=== PATIENT | female | born 1990 | race Caucasian/White ===

== ENCOUNTER → 2019-12-26 13:48 | Outpatient (BNVA) | payer SELFPAY | PROVIDERS: Family Provider Nurse Practitioner; Visit Provider Nurse Practitioner | DX: S96.912A Strain of unspecified muscle and tendon at ankle and foot level, left foot, initial encounter (principal); W19.XXXA Unspecified fall, initial encounter; Z68.41 Body mass index [BMI] 40.0-44.9, adult; F17.211 Nicotine dependence, cigarettes, in remission | CPT/HCPCS: 73630 ==

== ENCOUNTER → 2020-11-17 10:25 | Outpatient (BNVA) | payer OTHER, SELFPAY | PROVIDERS: Family Provider Nurse Practitioner; Visit Provider Nurse Practitioner Family | DX: Z20.822 Contact with and (suspected) exposure to COVID-19 (principal) | CPT/HCPCS: 87635 ==

== ENCOUNTER 2021-04-19 14:38 | Emergency (ER) | payer MEDICAID, SELFPAY ==
--- NOTE | 2021-04-19 14:45 | XR_ITS ---
WS: [id number] Exam: XR ankle LT min 3V* [id number] Date/Time of Exam: 04/19/2021 2:45 PM Reason For Exam: injury/pain There is a small bone fragments seen along the lateral margin of the calcaneus with soft tissue swell ing. This is suspicious for an acute fracture. No fractures of the ankle are seen. The ankle mortise is preserved. Prominent heel spur. XR/XR ankle LT min 3V* [id number] IMPRESSION: 1. Small bone chip seen along the lateral margin of the calcaneus with associat ed soft tissue swelling suspicious for small fracture. 2. The ankle appears normal.
[2021-04-19 15:07] VITALS: BP 116/60; PULSE 86; RESP 16; TEMP 36.7; O2SAT 99
--- NOTE | 2021-04-19 17:34 | W.ED.EXTPRO ---
HPI - Extremity Problem General: Chief complaint: Extremity Injury, Lower Stated complaint: L ANKLE INJURY Time Seen by Provider: 04/19/21 17:34 History of Present Illness: HPI Narrative: 30-year-old female comes in today for evaluation of injury of the left ankle. Patient was stepping off the last step and fell twisting her left ankle. Patient has pain and discomfort. Patient reports hearing a pop in the ankle. Patient appears well. Patient appears no acute distress. Patient denies any chronic medical problems. Review of Systems General: Reports: 10 or more systems reviewed and unremarkable except in HPI and below Musc: Reports: other (Left ankle injury.) [facility] ED PFSH: Social History Smoking and tobacco status: former smoker Physical Exam Const: COMMON NORMALS: no acute distress and patient oriented x3 GENERAL APPEARANCE: cooperative HENMT: COMMON NORMALS: normocephalic HEAD & SCALP: normal to inspection and normocephalic Eye: GENERAL EYE: appearance normal, both eyes and all related structures Neck/C-Spine: COMMON NORMALS: full ROM Chest: COMMONS NORMALS: normal inspection of the chest Resp: COMMON NORMALS: normal respiratory effort EFFORT & INSPECTION: Yes able to speak in complete sentences Cardio: COMMON NORMALS: regular rate and regular rhythm RATE: regular rate RHYTHM: regular rhythm GI: COMMON NORMALS: non-tender Back/Pelvis: COMMON NORMALS: thoracic and lumbar spine normal to inspection Extremity: NARRATIVE EXTREMITY EXAM: Lateral tenderness of the left ankle with swelling noted. Neuro: COMMON NORMALS: patient oriented x3 and moves all extremities Psych: COMMON NORMALS: mental status grossly normal and cooperative Skin: COMMON NORMALS: no rashes or lesions noted GENERAL SKIN EXAM: no rashes or lesions noted Course Vital Signs: Vital signs: Vital Signs Temperature 98.1 F 04/19/21 15:07 Pulse Rate 86 04/19/21 15:07 Respiratory Rate 16 04/19/21 15:07 Blood Pressure 116/60 04/19/21 15:07 Pulse Oximetry 99 04/19/21 15:07 MDM - Extremity (Nontraumatic) MDM Narrative: Medical decision making narrative: Patient comes in for injury to the left ankle. On exam patient has tenderness and swelling to the lateral left ankle. Differential diagnosis includes sprain, fracture, contusion. X-ray notes a superficial fracture along the lateral calcaneus probably suggestive of a avulsion fracture of the ligament. Reviewed exam with patient with recommendations for treatment and follow-up with orthopedic/podiatry. Case management was requested to assist with follow-up appointment. Patient was placed in a stirrup splint and crutches for ambulation. Patient reported understanding of care plan and need for follow-up or return to the ER. Discharge Plan Discharge Patient Disposition: Home Clinical Impression: Ankle fracture Qualifiers: Encounter type: initial encounter Fracture type: closed Laterality: left Qualified Code(s): S82.892A - Other fracture of left lower leg, initial encounter for closed fracture Condition: Stable Discharge Orders: Discharge ED (Routine); Ordered 04/19/21 Ordered By: Lokesh Garza Discharge Diet: Usual diet Discharge Activity: Increase activity as tolerated Patient Instructions: Ankle Fracture (ED), Opioid Safety Activity Restrictions/Additional Instructions: Activity as tolerated. Use crutches for ambulation. Maintain splint to keep it clean and dry. Follow-up with orthopedist or pulverizer tender for further evaluation. Case management will contact you to assist with follow-up appointment. Use acetaminophen and ibuprofen for pain. Use ice packs for further pain relief. Return to emergency department for new concerns. Coding Level of Care Code ED Lithographic Printing Machinist for Alyssa Stearns
[2021-04-19 17:51] VITALS: BP 147/105; PULSE 82; RESP 18; O2SAT 98
--- NOTE | 2021-04-19 17:57 | PC.NURSE ---
Reviewed with STREETCAR REPAIRER HELPER for stirrup splint, placed by rubi Meza with crutch training.
--- NOTE | 2021-04-20 08:39 | DCPLANNER ---
microbiology manager had message to schedule a follow up appointment for patient with ortho. microbiology manager called the ortho clinic, spoke with Willow, gave clinic patients information. microbiology manager was told that patients information would be printed and reviewed. Clinic will call patient with appointment information.
--- NOTE | 2021-04-22 07:04 | DCPLANNER ---
Patient has a follow up appointment scheduled for Tuesday, April 27, 2021 at 9:[address] Peters at [facility]. Clinic will call patient with appointment information.
--- NOTE | 2021-05-07 11:19 | DCPLANNER ---
Patient had a follow up appointment scheduled for 04.27.21 with ortho - patient did attend appointment.
== END 2021-04-19 19:17 | disposition home or self-care (01) ==
PROVIDERS: Emergency Provider Nurse Practitioner Family
DX: S92.002A Unspecified fracture of left calcaneus, initial encounter for closed fracture (principal); X50.1XXA Overexertion from prolonged static or awkward postures, initial encounter; Z87.891 Personal history of nicotine dependence
CPT/HCPCS: 29515; 73610; 99283

== ENCOUNTER 2021-04-27 11:26 | Outpatient (CLI) | payer BC, SELFPAY | END 2021-04-27 11:27 | disposition home or self-care (01) | LOC: SPT 11:27 | PROVIDERS: Visit Provider Orthopaedic Surgery | DX: M25.572 Pain in left ankle and joints of left foot (principal) | CPT/HCPCS: 97760; L4361 ==

== ENCOUNTER → 2022-04-11 17:09 | Outpatient (BNVA) | payer BC, SELFPAY | PROVIDERS: PCP Registered Nurse; Visit Provider Registered Nurse Neonatal Intensive Care | DX: J02.9 Acute pharyngitis, unspecified (principal); H66.001 Acute suppurative otitis media without spontaneous rupture of ear drum, right ear | CPT/HCPCS: 87071; 87880 ==

== ENCOUNTER 2023-02-01 16:55 | Observation (INO) | payer BC, MEDICAID, SELFPAY ==
[2023-02-01 16:57] VITALS: BP 142/72; PULSE 83; RESP 17; TEMP 36.8; O2SAT 98; BMI 48.4
[2023-02-01 17:17] LABS: Basophils % 0.4 %; Eosinophils # 0.1 10^3/uL (0.0-0.8); Eosinophils % 1.2 %; Hematocrit 42.3 % (36-47); Lymphocytes # 2.2 10^3/uL (0.8-4.8); Mean Corpuscular HGB Conc 32.2 g/dL (30-55); Mean Corpuscular Hemoglobin 27.8 pg (27-33); Mean Corpuscular Volume 86.3 fl (85-98); Mean Platelet Volume 10.5 fL (7.4-10.4); Monocytes # 0.5 10^3/uL (0.2-0.9); Monocytes % 4.4 %; Neutrophils # 8.11 10^3/uL (1.8-7.7); Neutrophils % 73.7 %; Nucleated Red Blood Cells % 0 %; Platelet Count 303 10^3/cmm (157-399); Red Cell Distribution Width 13.5 % (12.1-15.1); White Blood Count 10.99 10^3/uL (3.29-11.43)
--- NOTE | 2023-02-01 17:28 | W.ED.ABDPA2 ---
HPI - Abdominal Pain General: Chief Complaint: Abdominal Pain Stated Complaint: low abd pain Time Seen by Provider: 02/01/23 16:59 History of Present Illness: 32 yo f with 8 hrs of abdominal pain, progressively gotten worse. Location primarily periumbulical. Nausea with one episode of vomiting. Five normal stools today; eg increased in frequency but otherwise normal. Denies surgies to abd other than c section. No f/c, cough, cp, sob, dysuria, hematuria. Some low back pain but she cannot reproduce it. Denies alcohol use. Associated Symptoms: Denies chills, diarrhea, dysuria, fever(s) and syncope Review of Systems General: Reports: 10 or more systems reviewed and unremarkable except in HPI and below Const: Denies: fever(s), chills or body aches Eyes: Denies: change in vision ENMT: Denies: throat pain Card: Denies: chest pain, edema or syncope Resp: Denies: dyspnea or productive cough GI: Denies: diarrhea : Denies: flank pain, dysuria or urinary frequency Musc: Denies: neck pain, extremity pain or extremity swelling Skin/Breast: Denies: rash or erythema Neuro: Denies: headache(s), numbness in extremities, weakness in extremities, lack of coordination or difficulty walking PFSH ED PFSH: Social History Smoking and tobacco status: former smoker Physical Exam Const: COMMON NORMALS: no limitations, alert and well nourished EXAM LIMITATIONS: no altered mental status HENMT: COMMON NORMALS: normocephalic, atraumatic and external ears normal HEAD & SCALP: normocephalic and atraumatic EXTERNAL EAR: Yes external ears normal MOUTH: no muffled voice Eye: COMMON NORMALS: EOMs intact bilaterally, conjunctivae normal and no scleral icterus CONJUNCTIVA: Yes conjunctivae normal Neck/C-Spine: COMMON NORMALS: no JVD GENERAL: Yes normal visual inspection and Yes trachea midline Resp: COMMON NORMALS: normal respiratory effort, No use of accessory muscles and clear to auscultation bilaterally AUSCULTATION: clear to auscultation bilaterally Cardio: COMMON NORMALS: no JVD, regular rate and regular rhythm RATE: regular rate RHYTHM: regular rhythm GI: COMMON NORMALS: Soft to palpation PALPATION: Yes Soft to palpation, Yes Tenderness to palpation present (GI) (periumbilical), Yes Guarding due to palpation present (GI), No Rigid due to palpation and Yes Other GI palpation findings present (heel strike causes her to localize periumbilical) Extremity: COMMON NORMALS: normal to inspection Neuro: COMMON NORMALS: moves all extremities, no focal motor deficits and no sensory deficits noted SENSORIUM/ORIENTATION: Yes alert SPEECH: speech normal Psych: COMMON NORMALS: mental status grossly normal, Normal thought process present, cooperative, normal affect and speech normal SPEECH: Yes normal speech THOUGHT PROCESS: Normal thought process present Skin: COMMON NORMALS: no rashes or lesions noted, turgor normal and no jaundice GENERAL SKIN EXAM: no rashes or lesions noted and turgor normal Course Vital Signs: Vital signs: Vital Signs Temperature 98.3 F 02/01/23 16:57 Pulse Rate 100 02/01/23 18:32 Respiratory Rate 22 H 02/01/23 18:23 Blood Pressure 155/81 02/01/23 18:32 Pulse Oximetry 98 02/01/23 18:32 Oxygen Delivery Me thod Room Air 02/01/23 18:32 MDM - Abdominal Pain Medical Decision Making ddx: Diverticulitis, colitis, partial obstruction, appendicitis, gastroenteritis, internal hernia, UTI, mesenteric adenitis, panniculitis, multiple others. Discussed differential diagnosis and need for further work-up including labs, urine, UPT, CT scan of the abdomen and pelvis. Will control pain during work-up. White blood cell count elevated to 11,000 No other significant lab derangements UA without any convincing evidence of infection hCG negative I have personally reviewed the CT scan of the abdomen pelvis. Concern for developing acute appendicitis. I reexamined the patient and she has tenderness in the periumbilical and right lower quadrant. Discussed with on-call surgeon, plan to admit to [facility] overnight, repeat labs in the morning, surgeon to repeat evaluation in the morning and decide about surgery. N.p.o., IV fluids, nausea medicine and pain medicine as needed orders. Lab Data 02/01/23 17:12 02/01/23 17:12 Labs/Radiology: Radiology Impressions Abdomen/Pelvis CT 02/01/23 19:29 IMPRESSION: 1. Proximal appendix is somewhat dilated to 11 mm with perhaps minimal surrounding edema and several calcified appendicoliths, however, air is seen more distally in the tip, findings are somewhat equivocal by CT for underlying appendicitis, please correlate clinically. 2. 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 3. Hepatic steatosis. Laboratory Results WBC 10.99 10^3/uL (3.29-11.43) 02/01/23 17:12 RBC 4.90 10^6/uL (3.85-5.65) 02/01/23 17:12 Hgb 13.60 g/dL (11.27-16.99) 02/01/23 17:12 Hct 42.3 % (36-47) 02/01/23 17:12 MCV 86.3 fl (85-98) 02/01/23 17:12 MCH 27.8 pg (27-33) 02/01/23 17:12 MCHC 32.2 g/dL (30-55) 02/01/23 17:12 RDW 13.5 % (12.1-15.1) 02/01/23 17:12 Plt Count 303 10^3/cmm (157-399) 02/01/23 17:12 MPV 10.5 fL (7.4-10.4) H 02/01/23 17:12 Neut % (Auto) 73.7 % 02/01/23 17:12 Lymph % (Auto) 20.0 % 02/01/23 17:12 [place] % (Auto) 4.4 % 02/01/23 17:12 Eos % (Auto) 1.2 % 02/01/23 17:12 Baso % (Auto) 0.4 % 02/01/23 17:12 Neut # (Auto) 8.11 10^3/uL (1.8-7.7) H 02/01/23 17:12 Lymph # (Auto) 2.2 10^3/uL (0.8-4.8) 02/01/23 17:12 Hopkins # (Auto) 0.5 10^3/uL (0.2-0.9) 02/01/23 17:12 Eos # (Auto) 0.1 10^3/uL (0.0-0.8) 02/01/23 17:12 Baso # (Auto) 0.0 10^3/uL (0.0-0.1) 02/01/23 17:12 Nucleated RBC % (auto) 0 % 02/01/23 17:12 Nucleated RBCs # 0.0 /100WBC 02/01/23 17:12 Sodium 141 mmol/L (136-145) 02/01/23 17:12 Potassium 4.1 mmol/L (3.5-5.1) 02/01/23 17:12 Chloride 102 mmol/L (98-107) 02/01/23 17:12 Carbon Dioxide 28 mmol/L (22-29) 02/01/23 17:12 Anion Gap 15.1 (5-19) 02/01/23 17:12 BUN 9 mg/dL (6-20) 02/01/23 17:12 Creatinine 0.7 mg/dL (0.5-0.9) 02/01/23 17:12 GFR Calculation 96.4 mL/min (90-130) 02/01/23 17:12 Glucose 115 mg/dL (65-115) 02/01/23 17:12 Calculated Osmolality 292 mOsm/kg (285-295) 02/01/23 17:12 Calcium 9.3 mg/dL (8.5-10.5) 02/01/23 17:12 Total Bilirubin 0.3 mg/dL (0.15-1.2) 02/01/23 17:12 AST 20 U/L (0-32) 02/01/23 17:12 ALT 16 U/L (0-33) 02/01/23 17:12 Alkaline Phosphatase 86 U/L (35-105) 02/01/23 17:12 Total Protein 7.9 g/dL (6.6-8.7) 02/01/23 17:12 Albumin 4.3 g/dL (3.5-5.2) 02/01/23 17:12 Globulin 3.6 g/dL (1.3-4.6) 02/01/23 17:12 Lipase 21 U/L (13-60) 02/01/23 17:12 HCG, Qual Negative (Negative) 02/01/23 18:55 Urine Color Yellow (Yellow) 02/01/23 18:55 Urine Appearance Hazy (CLEAR) A 02/01/23 18:55 Urine pH 8 (5-7) H 02/01/23 18:55 Ur Specific [place] 1.010 (1.005-1.030) 02/01/23 18:55 Urine Protein Neg (Negative) 02/01/23 18:55 Urine Glucose (UA) Norm (Normal) 02/01/23 18:55 Urine Ketones Negative (Negative) 02/01/23 18:55 Urine Blood Neg (Negative) 02/01/23 18:55 Urine Nitrate Negative (Negative) 02/01/23 18:55 Urine Bilirubin Neg (Negative) 02/01/23 18:55 Prot Sulfosalicylic Acd Negative (Negative) 02/01/23 18:55 Urine Urobilinogen Norm mg/dL (Negative) 02/01/23 18:55 Ur Leukocyte Esterase Negative (Negative) 02/01/23 18:55 Urine RBC 0-4 /hpf (0-2) H 02/01/23 18:55 Urine WBC 0-4 /hpf (0-5) H 02/01/23 18:55 Ur Squamous Epith Cells 0-4 /hpf (0-5) H 02/01/23 18:55 Amorphous Sediment 4+ /hpf 02/01/23 18:55 Urine Bacteria 1+ /hpf (NONE) H 02/01/23 18:55 All radiology interpretation(s) finalized by discharge Discharge Plan Discharge Patient Disposition: Placed in Observation Clinical Impression: Acute appendicitis, Abdominal pain Coding Level of Care Code ED Log Buyer for Alyssa Stearns
[2023-02-01 17:41] LABS: Alanine Aminotransferase 16 U/L (0-33); Albumin Level 4.3 g/dL (3.5-5.2); Alkaline Phosphatase 86 U/L (35-105); Anion Gap 15.1 (5-19); Aspartate Amino Transferase 20 U/L (0-32); Blood Urea Nitrogen 9 mg/dL (6-20); Calcium 9.3 mg/dL (8.5-10.5); Carbon Dioxide 28 mmol/L (22-29); Chloride 102 mmol/L (98-107); Globulin 3.6 g/dL (1.3-4.6); Glomerular Filtration Rate 96.4 mL/min (90-130); Glucose 115 mg/dL (65-115); Osmolality Calculated 292 mOsm/kg (285-295); Potassium 4.1 mmol/L (3.5-5.1); Sodium 141 mmol/L (136-145); Total Bilirubin 0.3 mg/dL (0.15-1.2); Total Protein 7.9 g/dL (6.6-8.7)
[2023-02-01 17:44] LABS: Lipase 21 U/L (13-60)
[2023-02-01] MEDS: diphenoxylate/atropine Tablet 2 TAB PO (18:20)
[2023-02-01] MEDS: ondansetron 2 mg/ML SDV 2 mL 4 MG IVP (18:22)
[2023-02-01 18:23] VITALS: RESP 22; O2SAT 100
[2023-02-01] MEDS: morphine 4 mg/mL SDV 1 mL IVP (18:23)
[2023-02-01 18:32] VITALS: BP 155/81; PULSE 100; O2SAT 98
[2023-02-01 19:16] LABS: HCG Qualitative Urine. Negative (Negative)
--- NOTE | 2023-02-01 19:29 | CTR_ITS ---
PROCEDURE INFORMATION: Exam: CT Abdomen And Pelvis With Contrast Exam date and time: 02/01/2023 7:51 PM Age: 32 years old Clinical indication: Abdominal pain; Localized; Other: Periumbilical; Prior surgery; Surgery date: 6+ months; Surgery type: Csection; Additional info: Periumbilical abd pain TECHNIQUE: Imaging protocol: Computed tomography of the abdomen and pelvis with contrast. Radiation optimization: All CT scans at this facility use at least one of these dose optimization techniques: automated exposure control; mA and/or kV adjustment per patient size (includes targeted exams where dose is matched to clinical indication); or iterative reconstruction. Contrast material: OMNI 350; Contrast volume: 100 ml; Contrast route: INTRAVENOUS (IV); REPORTING DATA: Count of CT and Cardiac NM exams in prior 12 months: This patient has received 0 known CTs and 0 known cardiac nuclear medicine studies in the 12 months prior to the current study. COMPARISON: No relevant prior studies available. RADIATION DOSE METRICS: Total DLP (mGy-cm): 1332 FINDINGS: Liver: Hepatic steatosis. Gallbladder and bile ducts: Normal. No calcified stones. No ductal dilation. Pancreas: Normal. No ductal dilation. Spleen: Normal. No splenomegaly. Adrenal glands: Normal. No mass. Kidneys and ureters: Normal. No hydronephrosis. Stomach and bowel: Unremarkable. No obstruction. No mucosal thickening. Appendix: Proximal appendix is somewhat dilated to 11 mm with perhaps minimal surrounding edema and several calcified appendicoliths, however, air is seen more distally in the tip, findings are somewhat equivocal by CT for underlying appendicitis, please correlate clinically. Intraperitoneal space: Unremarkable. No free air. No significant fluid collection. Vasculature: Unremarkable. No abdominal aortic aneurysm. Lymph nodes: Unremarkable. No enlarged lymph nodes. Urinary bladder: Unremarkable as visualized. 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 Bones/joints: Unremarkable. No acute fracture. Soft tissues: Unremarkable. CT/CT abdomen pelvis w con* [id number] IMPRESSION: 1. Proximal appendix is somewhat dilated to 11 mm with perhaps minimal surrounding edema and several calcified appendicoliths, however, air is seen more distally in the tip, findings are somewhat equivocal by CT for underlying appendicitis, please correlate clinically. 2. 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 3. Hepatic steatosis.
[2023-02-01 19:36] LABS: Add Urine Culture? No; Add Urine Microscopic? YES; Amorphous Sediment Urine 4+ /hpf; Bacteria Urine 1+ /hpf; Bilirubin Urine Neg (Negative); Blood Urine Neg (Negative); Glucose Urine UA Norm (Normal); Ketones Urine Negative (Negative); Leukocyte Esterase Urine Negative (Negative); Nitrate Urine Negative (Negative); Protein Urine Neg (Negative); RBC Urine 0-4 /hpf (0-2); Squamous Epithelial Cell Urine 0-4 /hpf (0-5); Sulfosalicylic Acid Urine Negative (Negative); Urine Appearance Hazy (CLEAR); Urine Color Yellow (Yellow); Urobilinogen Urine Norm (Negative); WBC Urine 0-4 /hpf (0-5); pH Urine 8 (5-7)
[2023-02-01] MEDS: iohexol 350 mg/mL 500 mL Btl (per mL) IV (20:03)
[2023-02-01 20:26] VITALS: BP 142/86; PULSE 82; RESP 16; TEMP 37.1; O2SAT 96
[2023-02-01] MEDS: sodium chloride 0.9% 1,000 ML 100 ML IV (21:52)
[2023-02-01] MEDS: ciprofloxacin 400 MG/200 ML PREMIX 200 MG IV (21:54)
[2023-02-01] MEDS: ketorolac 30 mg/mL INJ 15 MG IVP (21:57)
[2023-02-01] MEDS: metroNIDAZOLE IV 500 MG/100 ML PREMIX 100 MG IV (23:03)
[2023-02-01 23:40] VITALS: BP 119/74; PULSE 72; RESP 16; TEMP 36.8; O2SAT 96
[2023-02-02] VITALS (12 sets, daily range): BP systolic 119–174; BP diastolic 79–112; PULSE 68–84; RESP 15–24; TEMP 36.3–37; O2SAT 94–100
[2023-02-02] MEDS: ketorolac 30 mg/mL INJ 15 MG IVP ×2 (03:13→08:03)
[2023-02-02 05:10] LABS: Basophils % 0.3 %; Eosinophils # 0.1 10^3/uL (0.0-0.8); Eosinophils % 0.8 %; Hematocrit 39.1 % (36-47); Lymphocytes # 2.8 10^3/uL (0.8-4.8); Lymphocytes % 23.6 %; Mean Corpuscular HGB Conc 31.7 g/dL (30-55); Mean Corpuscular Hemoglobin 27.7 pg (27-33); Mean Corpuscular Volume 87.3 fl (85-98); Mean Platelet Volume 11.7 fL (7.4-10.4); Monocytes # 0.7 10^3/uL (0.2-0.9); Monocytes % 5.8 %; Neutrophils # 8.17 10^3/uL (1.8-7.7); Neutrophils % 69.2 %; Nucleated Red Blood Cells % 0 %; Platelet Count 249 10^3/cmm (157-399); Red Blood Count 4.48 10^6/uL (3.85-5.65); Red Cell Distribution Width 13.6 % (12.1-15.1); White Blood Count 11.81 10^3/uL (3.29-11.43)
[2023-02-02 05:31] LABS: Anion Gap 13.7 (5-19); Blood Urea Nitrogen 9 mg/dL (6-20); Calcium 8.6 mg/dL (8.5-10.5); Carbon Dioxide 27 mmol/L (22-29); Chloride 105 mmol/L (98-107); Glomerular Filtration Rate 82.6 mL/min (90-130); Glucose 101 mg/dL (65-115); Osmolality Calculated 293 mOsm/kg (285-295); Potassium 3.7 mmol/L (3.5-5.1); Sodium 142 mmol/L (136-145)
[2023-02-02] MEDS: metroNIDAZOLE IV 500 MG/100 ML PREMIX 100 MG IV ×2 (06:09→15:40)
--- NOTE | 2023-02-02 07:35 | PM.CONSULT ---
Providers/Reason For Consult Consulting Physician/Specialty*: General surgery Reason for Consult*: Possible acute appendicitis Attending Physician: Richy Montes MD Primary Care Provider: VIOLETTA Murillo History of Present Illness History of Present Illness Kisha Cervantes is a 32 year old female who presented yesterday to the emergency department complaining of periumbilical pain 9 out of 10, a CT scan of the abdomen was stone show equivocal findings for possible acute appendicitis, there is mild dilation of the base of the appendix was there is air distally on the deep. Patient was admitted for IV antibiotics and subsequent evaluation. Today patient reports improvement in pain but localization to the right lower quadrant. Her white count has trended up from 10-11. Review of Systems Narrative: 10 point review of system was done and is negative otherwise noted in HPI Medications/Allergies Home Medications Medication Instructions Recorded Confirmed Last Taken Type albuterol 90 mcg/actuation aerosol 2 mcg inhalation PRN Shortness Of 02/01/23 Unknown History inhaler Breath Or Wheezing cetirizine 10 mg tablet (Zyrtec) 10 mg PO DAILY 02/01/23 02/01/23 Unknown History Allergies Allergy/AdvReac Type Severity Reaction Status Date / Time cephalexin [From Keflex] Allergy ALGY-Hives Verified 04/11/22 17:04 erythromycin base Allergy ALGY-Hives Verified 04/11/22 17:04 Sulfa (Sulfonamide Allergy ALGY-Hives Verified 04/11/22 17:04 Antibiotics) Current Medications Generic Name Dose Route Start Last Admin Trade Name Freq PRN Reason Stop Dose Admin Sodium Chloride 1,000 mls @ 100 mls/hr 02/01/23 20:30 02/01/23 21:52 Sodium Chloride 0.9% IV 100 mls/hr .Q10H RONALD Administration Ciprofloxacin/Dextrose 400 mg in 200 mls @ 200 mls/hr 02/01/23 21:00 02/01/23 23:08 Cipro IV Infused Q12H RONALD Infusion Protocol Metronidazole 500 mg in 100 mls @ 100 mls/hr 02/01/23 22:00 02/02/23 06:09 Flagyl Iv IV 100 mls/hr Q8H RONALD Administration Protocol Ketorolac Tromethamine 15 mg 02/01/23 21:22 02/02/23 03:13 Ketorolac 30 Mg/Ml Inj IVP 02/06/23 21:21 15 mg Q6H RONALD Administration PFSH Acute PFSH: Social History Smoking and tobacco status: former smoker Vitals/I&O/Wt Last Vital Signs Temp 98.6 F 02/02/23 05:04 Pulse 84 02/02/23 05:04 Resp 16 02/02/23 05:04 BP 119/80 02/02/23 05:04 Pulse Ox 95 02/02/23 05:04 O2 Del Method Room Air 02/02/23 05:04 02/01/23 02/02/23 02/02/23 22:59 06:59 14:59 Intake Total 300 / 300 Balance 300 / 300 Weight last 48 hrs Weight 300 lb Physical Exam Narrative: General : Patient is well developed , no acute distress, oriented x3 Head : Normal cephalic, a-traumatic. Nose : Mucous membranes are without erythema. Lungs : Equal chest rise bilaterally, no use of accessory muscles, trachea is midline. CV : Rate and rhythm are normal. Abdomen : Abdomen is soft, there is moderate tenderness in the right lower quadrant, no rebound tenderness no peritoneal signs. Extremities : No edema. Upper extremities are normal bilaterally. Back : non-tender to palpation, no CVA tenderness. Data 02/02/23 03:50 02/02/23 03:50 A&P Assessment and plan (1) Acute appendicitis: This is a 32-year-old female with history of morbid obesity who presents with possible acute appendicitis. After a complete history, physical examination and review of all available clinical data I have offered the patient the option of laparoscopic appendectomy versus management with antibiotics. After discussion with family members and discussion of all the risk and benefits of the operation including the risks of bleeding, infection, high risk of hernia due to high BMI, damage to surrounding structures, need for open procedure, abscess formation, need for additional interventions the patient has decided to proceed with surgery. I will book surgery for the next available or slot, after surgery patient will probably remain in the hospital until the morning for IV antibiotics before discharge. Coding Level of Care Code 99506 Diagnoses Acute appendicitis K35.80
[2023-02-02] MEDS: ciprofloxacin 400 MG/200 ML PREMIX 200 MG IV (07:59)
--- NOTE | 2023-02-02 10:18 | PC.CHAP ---
Pastoral Care Encounter/Spiritual Assessment Type of Contact [] Declined retail beauty specialist visit [] Patient/Family/Request visit [] Outpatient visit [] Follow-up visit [] Physician referral [] Code/Alert [x] Routine visit [] Staff referral [] Actively dying [] Patient sleeping [] Family support [] [] Out of room [] Palliative care [] [x] Receiving care in room [] Pre-surgical visit [] Trauma [] Long length of stay [] ICU visit [] Other: Relational/Emotional Strength [x] Patient feels connected with others/family/visitors/staff [] Distress [] Loneliness/isolation [] Abandonment Spirituality of Patient [x] Person of Gail [] Attends Buddhist of their Gail [x] Believes in Prayer [] Reads Bible or Uatsdin materials [] There are Spiritual issues to be addressed Video Game Maker Interventions [x] Prayer [x] Active listening [x] Non-anxious presence [x] Spiritual/emotional support [] Crisis/trauma care [x] Spiritual counseling [] Bereavement support [] Provided bereavement packet [] Provided Bible/devotional materials [] Provided toy/stuffed animal, coloring book to patient or family member [] Provided Communion [] Anointing/[place] [] Salvation [x] Completed spiritual assessment [] Other: Impact on Illness or Injury [] Angry [] Fearful [] Anxious [] Often cries [] Exhaustion [] Unable to work [] Unable to attend quaker [] Unable to walk/stand [] Unable to read [] Unable to drive [] Unable to eat/drink [] Unable to sleep [] Unable to be with family [] Patient intubated [] Other: Summary had surgery on back well need rehab at home has a good attitude well go home Time spent with patient 10 mins
[2023-02-02] MEDS: ondansetron 2 mg/ML SDV 2 mL 4 MG IVP (10:50)
[2023-02-02] MEDS: sodium chloride 0.9% 1,000 ML 30 ML IV (11:36)
--- NOTE | 2023-02-02 12:38 | P.ANESASSM_ITS ---
Pre-Anesthetic Assessment Height/Weight: Height 1.68 m Weight 136.078 kg Temp Pulse Resp BP Pulse Ox O2 Del Method 97.9 F 78 17 160/93 98 Room Air 02/02/23 11:20 02/02/23 11:20 02/02/23 11:20 02/02/23 11:20 02/02/23 11:20 02/02/23 11:20 Preop Diagnosis: Acute Appendicitis Operation Date: 02/02/23 12:00 Proposed Procedures p Laparoscopic Appendectomy possible open(Not Applicable) - Richy Montes MD Familial anesthetic complications: None Was Beta Louis taken within 24 hours: N/A Was Clonidine taken within 24 hours: N/A Last intake: Intake Last Liquid Date 02/01/23 Last Liquid Time 23:30 Last Solid Date 02/01/23 Last Solid Time 12:00 Social No alcohol and No tobacco Exam alert, oriented x 3, clear to auscultation bilaterally and regular rate & rhythm Airway Submandibular: within normal limits Cervical ROM: within normal limits Mallampati: Class II Dentition: full History/ROS No significant history except as noted Pulmonary Asthma CV/HEM Hypertension None reported Hepatic None reported GI Gastroesophageal Reflux Disease Actue N/V related to appendicitis Metabolic Morbid Obesity Musc/sk None reported Neuropsych None reported Anesthetic Plan ASA status: 3 Anesthesia: General Risk of > 500 ml blood loss (7ml/kg in children): No Medications/Allergies Home Medications Medication Instructions Recorded Confirmed Last Taken Type albuterol 90 mcg/actuation aerosol 2 mcg inhalation Q6H PRN Shortness 02/01/23 02/02/23 Unknown History inhaler Of Breath Or Wheezing cetirizine 10 mg tablet (Zyrtec) 10 mg PO DAILY 02/01/23 02/02/23 1 Week Ago History ~01/26/23 Allergies Allergy/AdvReac Type Severity Reaction Status Date / Time cephalexin [From Keflex] Allergy ALGY-Hives Verified 04/11/22 17:04 erythromycin base Allergy ALGY-Hives Verified 04/11/22 17:04 Sulfa (Sulfonamide Allergy ALGY-Hives Verified 04/11/22 17:04 Antibiotics) Current Medications Generic Name Dose Route Start Last Admin Trade Name Freq PRN Reason Stop Dose Admin Sodium Chloride 1,000 mls @ 100 mls/hr 02/01/23 20:30 02/01/23 21:52 Sodium Chloride 0.9% IV 100 mls/hr .Q10H RONALD Administration Ciprofloxacin/Dextrose 400 mg in 200 mls @ 200 mls/hr 02/01/23 21:00 02/02/23 10:03 Cipro IV Infused Q12H RONALD Infusion Protocol Metronidazole 500 mg in 100 mls @ 100 mls/hr 02/01/23 22:00 02/02/23 07:45 Flagyl Iv IV Infused Q8H RONALD Infusion Protocol Sodium Chloride 1,000 mls @ 30 mls/hr 02/02/23 11:30 02/02/23 11:36 Sodium Chloride 0.9% IV 02/03/23 11:29 30 mls/hr .Q24H RONALD Administration Ketorolac Tromethamine 15 mg 02/01/23 21:22 02/02/23 08:03 Ketorolac 30 Mg/Ml Inj IVP 02/06/23 21:21 15 mg Q6H RONALD Administration Ondansetron HCl 4 mg 02/01/23 20:26 02/02/23 10:50 Ondansetron 2 Mg/Ml Sdv 2 Ml IVP 4 mg Q6H PRN Administration NAUSEA AND VOMITING PFSH Anesthesia Social History Smoking and tobacco status: former smoker Data Anesthesia 02/02/23 03:50 02/02/23 03:50 Short CBC 02/01/23 02/02/23 Range/Units 17:12 03:50 WBC 10.99 11.81 H (3.29-11.43) 10^3/uL Hgb 13.60 12.40 (11.27-16.99) g/dL Hct 42.3 39.1 (36-47) % MCV 86.3 87.3 (85-98) fl Plt Count 303 249 (157-399) 10^3/cmm Neut % (Auto) 73.7 69.2 % Neut # (Auto) 8.11 H 8.17 H (1.8-7.7) 10^3/uL BMP 02/01/23 02/02/23 17:12 03:50 Sodium 141 142 Potassium 4.1 3.7 Chloride 102 105 Carbon Dioxide 28 27 BUN 9 9 Creatinine 0.7 0.8 Glucose 115 101 Calcium 9.3 8.6 Liver Function 02/01/23 Range/Units 17:12 Total Bilirubin 0.3 (0.15-1.2) mg/dL AST 20 (0-32) U/L ALT 16 (0-33) U/L Alkaline Phosphatase 86 (35-105) U/L Albumin 4.3 (3.5-5.2) g/dL Urine 02/01/23 Range/Units 18:55 Urine Color Yellow (Yellow) Urine Appearance Hazy A (CLEAR) Urine pH 8 H (5-7) Ur Specific [place] 1.010 (1.005-1.030) Urine Protein Neg (Negative) Urine Glucose (UA) Norm (Normal) Urine Ketones Negative (Negative) Urine Nitrate Negative (Negative) Urine Bilirubin Neg (Negative) Ur Leukocyte Esterase Negative (Negative) Urine RBC 0-4 H (0-2) /hpf Urine WBC 0-4 H (0-5) /hpf Cardiac Studies: 2 No Data to Display
--- NOTE | 2023-02-02 12:40 | W.PM.OPSFHP ---
Same Day Surgery H&P Indication for Procedure/HPI DATE OF PROCEDURE: February 02, 2023 CHIEF COMPLAINT/INDICATIONFOR SURGICAL PROCEDURE: abdominal pain PREOP DIAGNOSIS: Acute Appendicitis PLANNED PROCEDURE: Operation Date: 02/02/23 12:00 Proposed Procedures p Laparoscopic Appendectomy possible open(Not Applicable) - Richy Montes MD Medications/Allergies* Home Medications Medication Instructions Recorded Confirmed Type albuterol 90 mcg/actuation aerosol 2 mcg inhalation Q6H PRN Shortness 02/01/23 02/02/23 History inhaler Of Breath Or Wheezing cetirizine 10 mg tablet (Zyrtec) 10 mg PO DAILY 02/01/23 02/02/23 History Allergies/Adverse Reactions Allergy/AdvReac Type Severity Reaction Status Date / Time cephalexin [From Keflex] Allergy ALGY-Hives Verified 04/11/22 17:04 erythromycin base Allergy ALGY-Hives Verified 04/11/22 17:04 Sulfa (Sulfonamide Allergy ALGY-Hives Verified 04/11/22 17:04 Antibiotics) Current Medications: Generic Name Dose Route Start Last Admin Trade Name Freq PRN Reason Stop Dose Admin Sodium Chloride 1,000 mls @ 100 mls/hr 02/01/23 20:30 02/01/23 21:52 Sodium Chloride 0.9% IV 100 mls/hr .Q10H RONALD Administration Ciprofloxacin/Dextrose 400 mg in 200 mls @ 200 mls/hr 02/01/23 21:00 02/02/23 10:03 Cipro IV Infused Q12H RONALD Infusion Protocol Metronidazole 500 mg in 100 mls @ 100 mls/hr 02/01/23 22:00 02/02/23 07:45 Flagyl Iv IV Infused Q8H RONALD Infusion Protocol Sodium Chloride 1,000 mls @ 30 mls/hr 02/02/23 11:30 02/02/23 11:36 Sodium Chloride 0.9% IV 02/03/23 11:29 30 mls/hr .Q24H RONALD Administration Ketorolac Tromethamine 15 mg 02/01/23 21:22 02/02/23 08:03 Ketorolac 30 Mg/Ml Inj IVP 02/06/23 21:21 15 mg Q6H RONALD Administration Ondansetron HCl 4 mg 02/01/23 20:26 02/02/23 10:50 Ondansetron 2 Mg/Ml Sdv 2 Ml IVP 4 mg Q6H PRN Administration NAUSEA AND VOMITING Pertinent History/Comorbid Conditions* Social History Smoking and tobacco status: former smoker Pertinent Exam Findings alert, oriented x 3, clear to auscultation bilaterally, regular rate & rhythm and procedure specific exam findings (abdomen tender on the RLQ) Recommendations Surgery/Procedure today Other Plans: OR today DC Post op Coding Level of Care Code Acute Code for Chg Fwd Diagnoses
[2023-02-02] MEDS: lidocaine-epi 1% 20 mL INJ 10 ML INJECTION (13:13)
[2023-02-02] MEDS: BUPivacaine 0.25% INJ 10 mL INJECTION (13:13)
--- NOTE | 2023-02-02 14:31 | ANE.PACU2 ---
Inpatient post-anesthesia follow up: Airway intact: Yes Vital signs: Temperature 97.9 F Pulse Rate 78 Respiratory Rate 17 Blood Pressure 160/93 Pulse Oximetry 98 Oxygen Delivery Me thod Room Air Oxygen Flow Rate Fraction of Inspir ed Oxygen Hydration adequate: Yes Nausea and vomiting: No Pain level: 1 Mental status: Baseline
--- NOTE | 2023-02-02 14:38 | PM.OP ---
Operative Report Date of procedure: February 02, 2023 Pre-op diagnosis: Acute appendicitis Post-op diagnosis: Acute appendicitis, adhesions of the omentum to the anterior abdominal wall Procedure done: Laparoscopic appendectomy Specimens removed/disposition: Appendix Surgeon: Richy Montes MD Estimated blood loss: 10 cc Findings: Inflamed appendix, additions to the omentum to anterior abdominal wall Brief History: 32-year-old female who presents to the hospital complaining of periumbilical pain that later located to the right lower quadrant. CT was equivocal for possible acute appendicitis, after clinical evaluation I offered the patient the option of IV antibiotics versus laparoscopic appendectomy. After discussion of all the risk and benefits of the operation patient decided to proceed with appendectomy. Procedure: Patient was brought into the OR. Placed in the supine position. She was intubated. The abdomen was prepped and draped in the usual sterile fashion. Timeout was conducted. The abdomen was entered with a supraumbilical incision with an open approach, Sands trocar was placed and fixed to the fascia with #0 Vicryl. Upon entry there was evidence of significant additions to the omental fat to the anterior abdominal wall in the infraumbilical location extending from the infraumbilical position down to the pelvis. This precluded the usual position of our trocars, therefore alternative position was done, 5 mm trocar was placed in the right upper quadrant and another 5 mm trocar was placed in the right lower quadrant. The appendix was identified, was located in the right flank, there was adhesions from the appendix to the terminal ileum, these were taken down very carefully with Enseal taking consideration of not injuring any adjacent structures. The mesoappendix was taken down using Enseal to the base of the appendix. The appendix was then transected at the base using a 45 mm blue load Endo PAO stapler. Small amount of oozing was noted from the staple line, therefore 5 mm clips were applied in the area of oozing, controlling the bleeding. The specimen was retrieved through the umbilical trocar site in an Endo Catch bag. The umbilical trocar site was then closed under direct visualization using a Latricia 0 Vicryl suture. The right lower quadrant trocar was removed the right upper quadrant trocar was used to evacuate the pneumoperitoneum and subsequently removed. The umbilical trocar site fascia was also closed with the 0 Vicryl used to fix the Sands trocar. The wounds were closed using 4-0 Monocryl for the skin and Dermabond was applied. At the end of the procedure all counts were correct. The patient was transferred to the PACU in stable condition.
[2023-02-02] MEDS: HYDROcodone-acetaminophen 5-325 mg Tablet 1 TAB PO (15:39)
== END 2023-02-02 17:10 | disposition home or self-care (01) ==
LOC: ER 20:29 → MEDSURG 02-02 07:15
PROVIDERS: Admitting Provider Surgery; Emergency Provider Emergency Medicine; PCP Registered Nurse; Visit Provider Surgery
PROC: 0DTJ4ZZ Resection of Appendix, Percutaneous Endoscopic Approach (ICD-10-PCS; CPT 44970; principal; 2023-02-02 12:00)
DX: K35.80 Unspecified acute appendicitis (principal); Z87.891 Personal history of nicotine dependence; I10 Essential (primary) hypertension; K21.9 Gastro-esophageal reflux disease without esophagitis; E66.01 Morbid (severe) obesity due to excess calories; Z68.42 Body mass index [BMI] 45.0-49.9, adult
CPT/HCPCS: 44970; 36415; 74177; 80048; 80053; 81001; 81025; 83690; 85025; 88304; 96374; 96375; 99285; G0378; J0744; J1100; J1170; J1200; J1885; J2250; J2270; J2405; J2704; J2710; J3010; J3490; J7030; Q9967

== ENCOUNTER → 2023-04-18 17:50 | Outpatient (BNVA) | payer BC, SELFPAY | PROVIDERS: Visit Provider Nurse Practitioner | DX: J02.9 Acute pharyngitis, unspecified (principal); H66.001 Acute suppurative otitis media without spontaneous rupture of ear drum, right ear | CPT/HCPCS: 87880 ==

== ENCOUNTER 2023-10-27 23:33 | Emergency (ER) | payer OTHER, BC, MEDICAID, SELFPAY ==
[2023-10-27 23:42] VITALS: PULSE 111; RESP 16; TEMP 36.9; O2SAT 95
[2023-10-27 23:46] VITALS: PULSE 102; RESP 16; O2SAT 96
--- NOTE | 2023-10-28 00:02 | USR_ITS ---
PROCEDURE INFORMATION: Exam: US First Trimester, Transabdominal and US , Transvaginal Exam date and time: 10/28/2023 1:37 AM Age: 33 years old Clinical indication: complicated by abdominal or pelvic pain; Right lower quadrant; First trimester (<14 weeks 0 days); Gestational age or lmp: 5w5d per gs- 8 weeks per patient but she isnt sure; ; Prior surgery; Surgery date: 6+ months; Surgery type: HX of two c sections; Additional info: Bleeding/cramping; Approx 8 wks preg LABS AND CLINICAL REPORTS: Last menstrual period start date: 08/28/2023 Gestational age (Established): 8 w 5 d Estimated due date (Established): 06/03/2024 TECHNIQUE: Imaging protocol: Real-time transabdominal obstetrical ultrasound of the maternal pelvis and a first trimester , less than 14 weeks 0 days, with image documentation. Transvaginal imaging was used for better evaluation of the fetus, adnexa, and/or cervix. COMPARISON: CT abdomen pelvis w con* [id number] 02/01/2023 7:51 PM FINDINGS: GESTATION: Gestation: Intrauterine gestation. Yolk sac is unremarkable. Embryonic/ heart rate: See [place] rump length (CRL) finding. Extra-embryonic membranes/Placenta: Unremarkable. No subchorionic bleed. Amniotic/Chorionic fluid: Amniotic and extra-amniotic fluid are normal for gestational age. BIOMETRY: Gestational age (AUA): See Mean sac diameter finding. [place] rump length (CRL): Possible tiny 1.3 mm crown-rump length which is out of range. Too early for heartbeat. Mean sac diameter: 0.85 cm. EGA (MSD) is 5 w 5 d. 8.5 mm mean gestational sac diameter with EGA 5 weeks 5 days. MATERNAL: Uterus: Unremarkable. Cervix: Cervical length measures 0 cm. One or more nabothian cysts. Closed 3.3 cm cervix. Right ovary/adnexa: 2.0 x 1.8 x 1.8 cm right ovary with estimated volume 3.4 cc. 0.7 x 0.7 x 0.8 cm low-density area in the right ovary which could represent complex cyst. Ill-defined complex area in the right adnexa measuring up to 4.6 x 4.1 x 5.4 cm. Left ovary/adnexa: 2.8 x 2.5 x 1.8 cm left ovary with estimated volume 6.8 cc. 1.5 x 1.2 x 1.3 cm simple left ovarian cyst. Intraperitoneal space: No intraperitoneal free fluid. US/US OB <=14 wk fetus w transvag IMPRESSION: 1. Closed 3.3 cm cervix. 2. 8.5 mm mean gestational sac diameter with EGA 5 weeks 5 days. 3. Possible tiny 1.3 mm crown-rump length which is out of range. Too early for heartbeat. 4. 1.5 x 1.2 x 1.3 cm simple left ovarian cyst. 5. 0.7 x 0.7 x 0.8 cm low-density area in the right ovary which could represent complex cyst. 6. Ill-defined complex area in the right adnexa measuring up to 4.6 x 4.1 x 5.4 cm which does not appear to be vascular. 7. Normal ovarian perfusion bilaterally with no ovarian torsion. 8. Serial quantitative hCGs and/or followup ultrasound may be helpful.
[2023-10-28 00:28] LABS: Add Urine Culture? Yes; Add Urine Microscopic? YES; Bacteria Urine 2+ /hpf; Bilirubin Urine Neg (Negative); Blood Urine Neg (Negative); Glucose Urine UA Norm (Normal); Ketones Urine 1+ (Negative); Leukocyte Esterase Urine 2+ (Negative); Mucus Urine TRACE /hpf; Nitrate Urine Negative (Negative); Protein Urine Neg (Negative); RBC Urine 0-4 /hpf (0-2); Urine Appearance Cloudy (CLEAR); Urine Color Yellow (Yellow); Urobilinogen Urine Neg (Negative); pH Urine 5 (5-7)
--- NOTE | 2023-10-28 00:35 | W.ED.ABDPA2 ---
Documented by User: BABATUNDE Martínez 10/28/23 00:49 HPI - Abdominal Pain General: Chief Complaint: Abdominal Pain Stated Complaint: 8 weeks / cramping Time Seen by Provider: 10/27/23 23:38 Source: patient Mode of arrival: ambulatory Limitations: no limitations History of Present Illness: Patient is a nice 33-year-old female presents to ED today with a complaint of lower abdominal/pelvic cramping. Patient states a few days ago she had an unexpectedly positive test. She states she had a normal menstrual cycle in the middle of August but has since then had some intermittent and sporadic of bleeding including of episode of discharge and clotting later in August. States she missed her menstrual cycle in September. She states a few days ago she took a home test that was positive. She then took 3 additional tests-all of which were positive. She is having some very minor spotting as well as some pelvic cramping. Denies vaginal discharge/odor. She is sexually active/monogamous with her . Pertinent past history: none Onset (ago): day(s) Pain Consistency: intermittent Severity: mild Quality: cramping Radiation: none Migration to: no migration Exacerbating factors: nothing Relieving factors: nothing Associated Symptoms: Reports nausea; Denies diarrhea, dysuria, fever(s), hematochezia, melena and vomiting Related Data: Date of Last Menstrual Period: 08/28/23 Patient : Yes Review of Systems Const: Denies: fever(s) Card: Denies: chest pain Resp: Denies: dyspnea GI: Reports: abdominal pain and nausea; Denies: vomiting, diarrhea, hematochezia or melena : Reports: irregular period, metrorrhagia and pelvic pain; Denies: flank pain, difficulty voiding, dysuria, urinary frequency, urinary urgency, urinary hesitancy, vaginal odor or vaginal discharge Musc: Denies: back pain Neuro: Denies: dizziness PFSH ED PFSH: Medical History Psychiatric care Surgical History History of laparoscopic appendectomy 02/02/23 Dr. Montes Social History Smoking and tobacco/nicotine status: former use of tobacco/nicotine Female Reproductive History: Date of last menstrual period: 08/28/23 Physical Exam Const: COMMON NORMALS: no acute distress, patient oriented x3, no limitations, alert and well nourished GENERAL APPEARANCE: cooperative NUTRITIONAL APPEARANCE: obese morbidly obese (BMI is over 49.8) ORIENTATION/CONSCIOUSNESS: Yes awake, Yes oriented to person, Yes oriented to place and Yes oriented to time Resp: COMMON NORMALS: normal respiratory effort and clear to auscultation bilaterally AUSCULTATION: clear to auscultation bilaterally Cardio: COMMON NORMALS: regular rate and regular rhythm RATE: regular rate RHYTHM: regular rhythm GI: COMMON NORMALS: Normal to inspection, nondistended, normoactive bowel sounds present, Soft to palpation, No hepatosplenomegaly present and no masses INSPECTION: Yes normal to inspection AUSCULTATION: Yes normoactive bowel sounds PALPATION: Yes Soft to palpation, Yes Tenderness to palpation present (GI) (throughout lower abdomen-exam limited due to body habitus), No Guarding due to palpation present (GI), No Rigid due to palpation and Yes No hepatosplenomegaly present : COMMON NORMALS: Yes no CVA tenderness BLADDER/KIDNEY EXAM: Yes no CVA tenderness OTHER: deferred pelvic exam Back/Pelvis: COMMON NORMALS: no CVA tenderness Neuro: COMMON NORMALS: patient oriented x3 SENSORIUM/ORIENTATION: Yes alert, Yes oriented to person, Yes oriented to place and Yes oriented to time Course Vital Signs: Vital signs: Vital Signs Temperature 98.4 F 10/27/23 23:42 Pulse Rate 92 10/28/23 02:00 Respiratory Rate 18 10/28/23 02:00 Pulse Oximetry 98 10/28/23 02:00 Oxygen Delivery Me thod Room Air 10/28/23 02:00 MDM - Abdominal Pain Lab Data 10/28/23 00:26 10/28/23 00:26 Labs/Radiology: Radiology Impressions Obstetrics Ultrasound 10/28/23 00:02 IMPRESSION: 1. Closed 3.3 cm cervix. 2. 8.5 mm mean gestational sac diameter with EGA 5 weeks 5 days. 3. Possible tiny 1.3 mm crown-rump length which is out of range. Too early for heartbeat. 4. 1.5 x 1.2 x 1.3 cm simple left ovarian cyst. 5. 0.7 x 0.7 x 0.8 cm low-density area in the right ovary which could represent complex cyst. 6. Ill-defined complex area in the right adnexa measuring up to 4.6 x 4.1 x 5.4 cm which does not appear to be vascular. 7. Normal ovarian perfusion bilaterally with no ovarian torsion. 8. Serial quantitative hCGs and/or followup ultrasound may be helpful. Laboratory Results WBC 9.15 10^3/uL (3.29-11.43) 10/28/23 00:26 RBC 4.31 10^6/uL (3.85-5.65) 10/28/23 00:26 Hgb 12.70 g/dL (11.27-16.99) 10/28/23 00:26 Hct 37.9 % (36-47) 10/28/23 00: MCV 87.9 fl (85-98) 10/28/23 00:26 MCH 29.5 pg (27-33) 10/28/23 00: MCHC 33.5 g/dL (30-55) 10/28/23 00:26 RDW 14.3 % (12.1-15.1) 10/28/23 00:26 Plt Count 280 10^3/cmm (157-399) 10/28/23 00:26 MPV 10.6 fL (7.4-10.4) H 10/28/23 00:26 Neut % (Auto) 67.1 % 10/28/23 00:26 Lymph % (Auto) 24.3 % 10/28/23 00: [place] % (Auto) 5.9 % 10/28/23 00:26 Eos % (Auto) 2.0 % 10/28/23 00:26 Baso % (Auto) 0.4 % 10/28/23 00:26 Neut # (Auto) 6.14 10^3/uL (1.8-7.7) 10/28/23 00:26 Lymph # (Auto) 2.2 10^3/uL (0.8-4.8) 10/28/23 00:26 [place] # (Auto) 0.5 10^3/uL (0.2-0.9) 10/28/23 00:26 Eos # (Auto) 0.2 10^3/uL (0.0-0.8) 10/28/23 00:26 Baso # (Auto) 0.0 10^3/uL (0.0-0.1) 10/28/23 00:26 Nucleated RBC % (auto) 0 % 10/28/23 00: Nucleated RBCs # 0.0 /100WBC 10/28/23 00:26 Sodium 137 mmol/L (136-145) 10/28/23 00:26 Potassium 3.4 mmol/L (3.5-5.1) L 10/28/23 00:26 Chloride 105 mmol/L (98-107) 10/28/23 00:26 Carbon Dioxide 21 mmol/L (22-29) L 10/28/23 00:26 Anion Gap 14.4 (5-19) 10/28/23 00:26 BUN 13 mg/dL (6-20) 10/28/23 00:26 Creatinine 0.6 mg/dL (0.5-0.9) 10/28/23 00:26 GFR Calculation 114.4 mL/min (90-130) 10/28/23 00:26 Glucose 108 mg/dL (65-115) 10/28/23 00:26 Calculated Osmolality 285 mOsm/kg (285-295) 10/28/23 00:26 Calcium 8.3 mg/dL (8.5-10.5) L 10/28/23 00:26 Total Bilirubin 0.3 mg/dL (0.15-1.2) 10/28/23 00:26 AST 16 U/L (0-32) 10/28/23 00:26 ALT 25 U/L (0-33) 10/28/23 00:26 Alkaline Phosphatase 77 U/L (35-105) 10/28/23 00:26 Total Protein 6.7 g/dL (6.6-8.7) 10/28/23 00:26 Albumin 3.7 g/dL (3.5-5.2) 10/28/23 00:26 Globulin 3.0 g/dL (1.3-4.6) 10/28/23 00:26 Ser , Semi-Qnt 7003.00 mIU/mL 10/28/23 00:26 Urine Color Yellow (Yellow) 10/28/23 00:10 Urine Appearance Cloudy (CLEAR) A 10/28/23 00:10 Urine pH 5 (5-7) 10/28/23 00:10 Ur Specific [place] 1.020 (1.005-1.030) 10/28/23 00:10 Urine Protein Neg (Negative) 10/28/23 00:10 Urine Glucose (UA) Norm (Normal) 10/28/23 00:10 Urine Ketones 1+ (Negative) H 10/28/23 00:10 Urine Blood Neg (Negative) 10/28/23 00:10 Urine Nitrate Negative (Negative) 10/28/23 00:10 Urine Bilirubin Neg (Negative) 10/28/23 00:10 Urine Urobilinogen Neg mg/dL (Negative) 10/28/23 00:10 Ur Leukocyte Esterase 2+ (Negative) H 10/28/23 00:10 Urine RBC 0-4 /hpf (0-2) H 10/28/23 00:10 Urine WBC 5-10 /hpf (0-5) H 10/28/23 00:10 Ur Squamous Epith Cells 5-10 /hpf (0-5) H 10/28/23 00:10 Amorphous Sediment Not Reportable 10/28/23 00:10 Urine Bacteria 2+ /hpf (NONE) H 10/28/23 00:10 Urine Mucus Trace /hpf 10/28/23 00:10 Blood Type A Positive 10/28/23 01:30 Rho(D) Type Rh positive 10/28/23 01:30 Discharge Plan Discharge Patient Disposition: Home Clinical Impression: , threatened, early , Urinary tract infection affecting Condition: Stable Prescriptions: New nitrofurantoin monohyd/m-cryst [Macrobid] 100 mg capsule 100 mg PO BID 7 Days Qty: 14 0RF Rx Instructions: must administer with a meal/food No Action amoxicillin-pot clavulanate 875-125 mg tablet 1 tab PO BID 7 Days Qty: 14 0RF duloxetine 30 mg capsule,delayed release(DR/EC) 30 mg PO DAILY Qty: 30 0RF hydroxyzine HCl 10 mg tablet 10 mg PO TID PRN (Reason: anxiety/insomnia) Qty: 90 0RF cetirizine [Zyrtec] 10 mg Tablet 10 mg PO DAILY albuterol 90 mcg/actuation Aerosol 2 mcg INHALATION Q6H PRN (Reason: Shortness Of Breath Or Wheezing) Discharge Orders: Discharge ED (Routine); Ordered 10/28/23 Ordered By: Javon Bailey Referrals: Brennan Rivera MD [Physician] - 4-7 days Brianna Lopez FNP [Primary Care Provider] - Discharge Diet: Advance as tolerated Discharge Activity: Limit activity as instructed Patient Instructions: Threatened Miscarriage (ED), Urinary Tract Infection in (ED), Opioid Safety, Pain Management Activity Restrictions/Additional Instructions: Limit lifting to 10 to 15 pounds, limit stairs and bending or stooping. No sexual intercourse until cleared by your doctor. Return for brisk vaginal bleeding, soaking a pad an hour for more than 2 to 3 hours, fever greater than 100, significantly worsening pain, any other concerning symptoms. Case management will attempt to help you get an obstetrics appointment with our women's health clinic. Their number is listed above, and you can call for an appointment yourself as well. Let them know you were seen here. Coding Level of Care Code ED Clamp Truck Driver for Chg Fwd Documented by User: Javon Bailey, 10/28/23 03:37 HPI - Abdominal Pain General: Chief Complaint: Abdominal Pain Stated Complaint: 8 weeks / cramping Time Seen by Provider: 10/27/23 23:38 [facility] ED PFSH: Medical History Psychiatric care Surgical History History of laparoscopic appendectomy 02/02/23 Dr. Montes Social History Smoking and tobacco/nicotine status: former use of tobacco/nicotine Course Vital Signs: Vital signs: Vital Signs Temperature 98.4 F 10/27/23 23:42 Pulse Rate 92 10/28/23 02:00 Respiratory Rate 18 10/28/23 02:00 Pulse Oximetry 98 10/28/23 02:00 Oxygen Delivery Me thod Room Air 10/28/23 02:00 MDM - Abdominal Pain Medical Decision Making This patient was originally seen by Mrs. Garcia?TEE Ojeda.? I agree with her history, evaluation, and treatment. I have evaluated the patient as well. CBC is normal. BMP shows mildly low potassium, otherwise normal. Urinalysis shows a 2+ leukocyte Estrace, but is otherwise equivocal. She is given Macrobid here. We will continue this. Ultrasound shows cysts on the bilateral ovaries. There is an ill-defined right adnexal mass measuring 4.6 cm. This is the same size as the ovarian dermoid cyst present on her prior CT scan from 2022. There is blood flow to both ovaries. Gestational sac measures 5 weeks 5 days, which is very consistent with her serum quant of 7000. She is Rh+. She will be allowed discharge to follow-up with obstetrics. Referral has been made through case management. She knows to return for fever, brisk bleeding, other concerning symptoms. Lab Data 10/28/23 00:26 10/28/23 00:26 Labs/Radiology: Radiology Impressions Obstetrics Ultrasound 10/28/23 00:02 IMPRESSION: 1. Closed 3.3 cm cervix. 2. 8.5 mm mean gestational sac diameter with EGA 5 weeks 5 days. 3. Possible tiny 1.3 mm crown-rump length which is out of range. Too early for heartbeat. 4. 1.5 x 1.2 x 1.3 cm simple left ovarian cyst. 5. 0.7 x 0.7 x 0.8 cm low-density area in the right ovary which could represent complex cyst. 6. Ill-defined complex area in the right adnexa measuring up to 4.6 x 4.1 x 5.4 cm which does not appear to be vascular. 7. Normal ovarian perfusion bilaterally with no ovarian torsion. 8. Serial quantitative hCGs and/or followup ultrasound may be helpful. Laboratory Results WBC 9.15 10^3/uL (3.29-11.43) 10/28/23 00:26 RBC 4.31 10^6/uL (3.85-5.65) 10/28/23 00:26 Hgb 12.70 g/dL (11.27-16.99) 10/28/23 00:26 Hct 37.9 % (36-47) 10/28/23 00:26 MCV 87.9 fl (85-98) 10/28/23 00:26 MCH 29.5 pg (27-33) 10/28/23 00:26 MCHC 33.5 g/dL (30-55) 10/28/23 00:26 RDW 14.3 % (12.1-15.1) 10/28/23 00:26 Plt Count 280 10^3/cmm (157-399) 10/28/23 00:26 MPV 10.6 fL (7.4-10.4) H 10/28/23 00:26 Neut % (Auto) 67.1 % 10/28/23 00:26 Lymph % (Auto) 24.3 % 10/28/23 00:26 [place] % (Auto) 5.9 % 10/28/23 00:26 Eos % (Auto) 2.0 % 10/28/23 00:26 Baso % (Auto) 0.4 % 10/28/23 00:26 Neut # (Auto) 6.14 10^3/uL (1.8-7.7) 10/28/23 00:26 Lymph # (Auto) 2.2 10^3/uL (0.8-4.8) 10/28/23 00:26 [place] # (Auto) 0.5 10^3/uL (0.2-0.9) 10/28/23 00:26 Eos # (Auto) 0.2 10^3/uL (0.0-0.8) 10/28/23 00:26 Baso # (Auto) 0.0 10^3/uL (0.0-0.1) 10/28/23 00:26 Nucleated RBC % (auto) 0 % 10/28/23 00: Nucleated RBCs # 0.0 /100WBC 10/28/23 00:26 Sodium 137 mmol/L (136-145) 10/28/23 00:26 Potassium 3.4 mmol/L (3.5-5.1) L 10/28/23 00:26 Chloride 105 mmol/L (98-107) 10/28/23 00:26 Carbon Dioxide 21 mmol/L (22-29) L 10/28/23 00:26 Anion Gap 14.4 (5-19) 10/28/23 00:26 BUN 13 mg/dL (6-20) 10/28/23 00:26 Creatinine 0.6 mg/dL (0.5-0.9) 10/28/23 00: GFR Calculation 114.4 mL/min (90-130) 10/28/23 00:26 Glucose 108 mg/dL (65-115) 10/28/23 00: Calculated Osmolality 285 mOsm/kg (285-295) 10/28/23: Calcium 8.3 mg/dL (8.5-10.5) L 10/28/23 00:26 Total Bilirubin 0.3 mg/dL (0.15-1.2) 10/28/23: AST 16 U/L (0-32) 10/28/23: ALT 25 U/L (0-33) 10/28/23 00: Alkaline Phosphatase 77 U/L (35-105) 10/28/23 00: Total Protein 6.7 g/dL (6.6-8.7) 10/28/23 00: Albumin 3.7 g/dL (3.5-5.2) 10/28/23 00: Globulin 3.0 g/dL (1.3-4.6) 10/28/23 00:26 Ser , Semi-Qnt 7003.00 mIU/mL 10/28/23 00:26 Urine Color Yellow (Yellow) 10/28/23 00:10 Urine Appearance Cloudy (CLEAR) A 10/28/23 00:10 Urine pH 5 (5-7) 10/28/23 00:10 Ur Specific [place] 1.020 (1.005-1.030) 10/28/23 00:10 Urine Protein Neg (Negative) 10/28/23 00:10 Urine Glucose (UA) Norm (Normal) 10/28/23 00:10 Urine Ketones 1+ (Negative) H 10/28/23 00:10 Urine Blood Neg (Negative) 10/28/23 00:10 Urine Nitrate Negative (Negative) 10/28/23 00:10 Urine Bilirubin Neg (Negative) 10/28/23 00:10 Urine Urobilinogen Neg mg/dL (Negative) 10/28/23 00:10 Ur Leukocyte Esterase 2+ (Negative) H 10/28/23 00:10 Urine RBC 0-4 /hpf (0-2) H 10/28/23 00:10 Urine WBC 5-10 /hpf (0-5) H 10/28/23 00:10 Ur Squamous Epith Cells 5-10 /hpf (0-5) H 10/28/23 00:10 Amorphous Sediment Not Reportable 10/28/23 00:10 Urine Bacteria 2+ /hpf (NONE) H 10/28/23 00:10 Urine Mucus Trace /hpf 10/28/23 00:10 Blood Type A Positive 10/28/23 01:30 Rho(D) Type Rh positive 10/28/23 01:30 All radiology interpretation(s) finalized by discharge Discharge Plan Discharge Patient Disposition: Home Clinical Impression: , threatened, early , Urinary tract infection affecting Condition: Stable Prescriptions: New nitrofurantoin monohyd/m-cryst [Macrobid] 100 mg capsule 100 mg PO BID 7 Days Qty: 14 0RF Rx Instructions: must administer with a meal/food No Action amoxicillin-pot clavulanate 875-125 mg tablet 1 tab PO BID 7 Days Qty: 14 0RF duloxetine 30 mg capsule,delayed release(DR/EC) 30 mg PO DAILY Qty: 30 0RF hydroxyzine HCl 10 mg tablet 10 mg PO TID PRN (Reason: anxiety/insomnia) Qty: 90 0RF cetirizine [Zyrtec] 10 mg Tablet 10 mg PO DAILY albuterol 90 mcg/actuation Aerosol 2 mcg INHALATION Q6H PRN (Reason: Shortness Of Breath Or Wheezing) Discharge Orders: Discharge ED (Routine); Ordered 10/28/23 Ordered By: Javon Bailey Referrals: Brennan Rivera MD [Physician] - 4-7 days Brianna Lopez FNP [Primary Care Provider] - Discharge Diet: Advance as tolerated Discharge Activity: Limit activity as instructed Patient Instructions: Threatened Miscarriage (ED), Urinary Tract Infection in (ED), Opioid Safety, Pain Management Activity Restrictions/Additional Instructions: Limit lifting to 10 to 15 pounds, limit stairs and bending or stooping. No sexual intercourse until cleared by your doctor. Return for brisk vaginal bleeding, soaking a pad an hour for more than 2 to 3 hours, fever greater than 100, significantly worsening pain, any other concerning symptoms. Case management will attempt to help you get an obstetrics appointment with our women's health clinic. Their number is listed above, and you can call for an appointment yourself as well. Let them know you were seen here. Coding Level of Care Code ED Clamp Truck Driver for Alyssa Stearns
[2023-10-28 00:41] LABS: Basophils % 0.4 %; Eosinophils # 0.2 10^3/uL (0.0-0.8); Hematocrit 37.9 % (36-47); Lymphocytes # 2.2 10^3/uL (0.8-4.8); Lymphocytes % 24.3 %; Mean Corpuscular HGB Conc 33.5 g/dL (30-55); Mean Corpuscular Hemoglobin 29.5 pg (27-33); Mean Corpuscular Volume 87.9 fl (85-98); Mean Platelet Volume 10.6 fL (7.4-10.4); Monocytes # 0.5 10^3/uL (0.2-0.9); Monocytes % 5.9 %; Neutrophils # 6.14 10^3/uL (1.8-7.7); Neutrophils % 67.1 %; Nucleated Red Blood Cells % 0 %; Platelet Count 280 10^3/cmm (157-399); Red Blood Count 4.31 10^6/uL (3.85-5.65); Red Cell Distribution Width 14.3 % (12.1-15.1); White Blood Count 9.15 10^3/uL (3.29-11.43)
[2023-10-28 01:02] LABS: Alanine Aminotransferase 25 U/L (0-33); Albumin Level 3.7 g/dL (3.5-5.2); Alkaline Phosphatase 77 U/L (35-105); Anion Gap 14.4 (5-19); Aspartate Amino Transferase 16 U/L (0-32); Blood Urea Nitrogen 13 mg/dL (6-20); Calcium 8.3 mg/dL (8.5-10.5); Carbon Dioxide 21 mmol/L (22-29); Chloride 105 mmol/L (98-107); Creatinine Clr Calc Pharmacy 186.3668; Glomerular Filtration Rate 114.4 mL/min (90-130); Glucose 108 mg/dL (65-115); Osmolality Calculated 285 mOsm/kg (285-295); Potassium 3.4 mmol/L (3.5-5.1); Sodium 137 mmol/L (136-145); Total Bilirubin 0.3 mg/dL (0.15-1.2); Total Protein 6.7 g/dL (6.6-8.7)
[2023-10-28] MEDS: nitrofurantoin SR (BID) 100 mg Capsule PO (01:14)
[2023-10-28] MEDS: sodium chloride 0.9% 1,000 ML 999 ML IV (01:14)
[2023-10-28 02:00] VITALS: PULSE 92; RESP 18; O2SAT 98
[2023-10-28 03:40] VITALS: BP 155/103; PULSE 86; RESP 16; O2SAT 98
--- NOTE | 2023-10-30 07:26 | DCPLANNER ---
message sent to [facility] for [facility] f/u
== END 2023-10-28 03:41 | disposition home or self-care (01) ==
PROVIDERS: Physician Assistant; Emergency Provider Emergency Medicine; PCP Registered Nurse
DX: O20.0 Threatened abortion (principal); Z3A.01 Less than 8 weeks gestation of pregnancy; O23.41 Unspecified infection of urinary tract in pregnancy, first trimester; N39.0 Urinary tract infection, site not specified; Z87.891 Personal history of nicotine dependence
CPT/HCPCS: 36415; 76801; 76817; 80053; 81001; 84702; 85025; 86900; 87086; 96360; 99285; J7030

== ENCOUNTER 2023-11-04 17:02 | Emergency (ER) | payer OTHER, BC, MEDICAID, SELFPAY ==
[2023-11-04 17:11] VITALS: BP 161/107; PULSE 80; RESP 17; TEMP 36.6; O2SAT 100; BMI 48.1
--- NOTE | 2023-11-04 17:50 | USR_ITS ---
PROCEDURE INFORMATION: Exam: US First Trimester, Transabdominal and US , Transvaginal Exam date and time: 11/04/2023 6:43 PM Age: 33 years old Clinical indication: Lmp or gestational age (in weeks): 6w0d; Antepartum complications; Bleeding; ; Additional info: Passing clots LABS AND CLINICAL REPORTS: Last menstrual period start date: 08/28/2023 Gestational age (Established): 9 w 5 d Estimated due date (Established): 06/03/2024 TECHNIQUE: Imaging protocol: Real-time transabdominal obstetrical ultrasound of the maternal pelvis and a first trimester , less than 14 weeks 0 days, with image documentation. Transvaginal imaging was used for better evaluation of the fetus, adnexa, and/or cervix. COMPARISON: US OB <=14 wk fetus w transvag 10/28/2023 1:37 AM FINDINGS: GESTATION: Gestation: Yolk sac measures 2.7 mm. Single living intrauterine measuring 6 weeks 0 days by crown-rump length with bradycardia with a heart rate 99 bpm. Embryonic/ heart rate: 98 bpm Extra-embryonic membranes/Placenta: Unremarkable. No subchorionic bleed. Amniotic/Chorionic fluid: Amniotic and extra-amniotic fluid are normal for gestational age. BIOMETRY: Gestational age (AUA): 6 weeks 0 days Mean sac diameter: 2.12 cm. EGA (MSD) is 7 w 0 d MATERNAL: Uterus: Unremarkable. Cervix: Unremarkable. Endocervical canal is closed. Right ovary/adnexa: Complex well-circumscribed region within the right adnexa with no internal vascularity measuring 4.4 x 4.0 x 5.2 cm. This is indeterminate and of unknown clinical significance but is similar in size to the prior pelvic ultrasound dated 10/28/2023. Left ovary/adnexa: Obscured by lack of adequate acoustic window. Intraperitoneal space: No intraperitoneal free fluid. Other findings: The ovaries are not identified. US/US OB <=14 wk fetus w transvag IMPRESSION: 1. Single living intrauterine measuring 6 weeks 0 days by crown-rump length with bradycardia with a heart rate 99 bpm. 2. The ovaries are not identified. 3. Complex well-circumscribed region within the right adnexa with no internal vascularity measuring 4.4 x 4.0 x 5.2 cm. This is indeterminate and of unknown clinical significance but is similar in size to the prior pelvic ultrasound dated 10/28/2023.
[2023-11-04] MEDS: sodium chloride 0.9% 1,000 ML 999 ML IV (17:51)
--- NOTE | 2023-11-04 17:53 | ED_ITS ---
HPI - Abdominal Pain 2 General: Chief Complaint: Abdominal Pain Stated Complaint: n/v, abd pain Time Seen by Provider: 11/04/23 17:41 Source: patient Mode of arrival: ambulatory Limitations: no limitations History of Present Illness: Patient is a 33-year-old female presenting to the emergency department complaining of nausea and vaginal bleeding for the past week. Patient seen in the emergency department last week after having multiple home tests positive. She was having abdominal cramping at that time, was worked up and found to have a threatened as well as a UTI during and was prescribed antibiotics. She states that since Monday she has now started to have symptoms of nausea and vomiting and has also had multiple episodes of passing large clots. The pain has subsided, though she now states she has pain in her upper abdomen from vomiting. She has not established with OB. She is denying any syncope, palpitations, peripheral edema, or any other symptoms at this time. Last normal menstrual period was in August. MD elicited complaint: other (N/V during ) Onset (ago): day(s) Pain Consistency: constant Quality: cramping Context: other () Associated Symptoms: Reports nausea and vomiting; Denies bloating, change in stool character, chills, constipation, diarrhea, dysuria, fever(s) and hematochezia Related Data: Patient : Yes Review of Systems 2 General: Reports: 10 or more systems reviewed and unremarkable except in HPI and below Const: Denies: fever(s), chills, change in appetite, change in weight or diaphoresis ENMT: Denies: throat pain or hoarseness Card: Denies: chest pain, palpitations or lightheadedness Resp: Denies: dyspnea, productive cough or wheezing GI: Reports: abdominal pain, nausea and vomiting; Denies: diarrhea, constipation, bloating, change in stool character or hematochezia : Reports: vaginal bleeding and other (); Denies: flank pain, difficulty voiding, dysuria, urinary frequency or urinary urgency Musc: Denies: neck pain or back pain Skin/Breast: Denies: rash or new lesions Neuro: Denies: headache(s) or dizziness PFSH ED 2 PFSH: Medical History Psychiatric care Surgical History History of laparoscopic appendectomy 02/02/23 Dr. Montes Social History Smoking and tobacco/nicotine status: former use of tobacco/nicotine Physical Exam 2 Const: COMMON NORMALS: no acute distress, average body habitus, patient oriented x3, no limitations, healthy appearing, alert and well nourished G ENERAL APPEARANCE: cooperative and comfortable NUTRITIONAL APPEARANCE: obese morbidly obese ORIENTATION/CONSCIOUSNESS: Yes awake HENMT: COMMON NORMALS: normocephalic, atraumatic, hearing grossly normal bilaterally, external ears normal, Normal external nose present, Normal nasal mucous membranes and turbinates present and moist oral mucous membranes HEAD & SCALP: normocephalic and atraumatic NOSE: Normal external nose present and Normal nasal mucous membranes and turbinates present EXTERNAL EAR: Yes external ears normal Eye: COMMON NORMALS: Equal, round and reactive pupils present, EOMs intact bilaterally, conjunctivae normal and normal visual clements by confrontation C ONJUNCTIVA: Yes conjunctivae normal PUPIL: Yes Equal, round and reactive pupils present Neck/C-Spine: COMMON NORMALS: full ROM, supple, no meningeal signs and no JVD Resp: COMMON NORMALS: normal respiratory effort, No retractions, No use of accessory muscles and clear to auscultation bilaterally AUSCULTATION: clear to auscultation bilaterally, no crackles, no rales, no rhonchi and no wheezes Cardio: COMMON NORMALS: no JVD, regular rate, regular rhythm, S1 normal heart sound present, S2 normal heart sound present, No gallops present (Cardio), No clicks present (Cardio), No murmurs present (Cardio), No rub (Cardio) and Peripheral pulses 2+ throughout RATE: regular rate RHYTHM: regular rhythm HEART SOUNDS: S1 normal heart sound present and S2 normal heart sound present PERIPHERAL PULSES: Peripheral pulses 2+ throughout GI: COMMON NORMALS: Normal to inspection, nondistended, normoactive bowel sounds present, Soft to palpation, non-tender, No hepatosplenomegaly present and no masses INSPECTION: Yes central obesity AUSCULTATION: Yes normoactive bowel sounds PALPATION: Yes Soft to palpation, No Guarding due to palpation present (GI), No Rigid due to palpation and Yes No hepatosplenomegaly present RECTAL EXAM: deferred : COMMON NORMALS: Yes no CVA tenderness BLADDER/KIDNEY EXAM: Yes no CVA tenderness Back/Pelvis: COMMON NORMALS: no CVA tenderness Extremity: COMMON NORMALS: normal to inspection, full ROM and no pedal edema Neuro: COMMON NORMALS: patient oriented x3, moves all extremities, no focal motor deficits and no sensory deficits noted SENSORIUM/ORIENTATION: Yes alert MENINGEAL SIGNS: Yes no meningeal signs Psych: COMMON NORMALS: mental status grossly normal, cooperative and speech normal SPEECH: Yes normal speech Skin: COMMON NORMALS: no rashes or lesions noted GENERAL SKIN EXAM: no rashes or lesions noted Course 2 Vital Signs: Vital signs: Vital Signs Temperature 97.9 F 11/04/23 17:11 Pulse Rate 87 11/04/23 22:13 Respiratory Rate 16 11/04/23 22:13 Blood Pressure 160/73 11/04/23 22:13 Pulse Oximetry 98 11/04/23 22:13 Oxygen Delivery Me thod Room Air 11/04/23 22:13 MDM - Abdominal Pain Medical Decision Making Patient presents for evaluation of vaginal bleeding. She was seen in the emergency department last week after she found out she was and was having some abdominal pain. Ultrasound at that time showed intrauterine of about 5 weeks gestation. She was discharged home, has not followed up with OB. Primary complaint now is nausea and the vaginal bleeding. CBC did not reveal any signs of acute blood loss anemia, and her quantitative beta-hCG did reveal progression of . Repeat ultrasound showed now measuring about 6 weeks gestation, though heart tones were noted to be bradycardic. After rechecking her following Zofran and fluids, she states she does feel better. I instructed her to follow-up with OB early next week so she can undergo further testing and establish care. No emergent findings at this time that would warrant further investigation, and return precautions were given. Patient's case was discussed with supervising ED physician, Dr. Andino, who agrees with disposition. Lab Data 11/04/23 17:52 11/04/23 17:52 Labs/Radiology: Radiology Impressions Obstetrics Ultrasound 11/04/23 17:50 IMPRESSION: 1. Single living intrauterine measuring 6 weeks 0 days by crown-rump length with bradycardia with a heart rate 99 bpm. 2. The ovaries are not identified. 3. Complex well-circumscribed region within the right adnexa with no internal vascularity measuring 4.4 x 4.0 x 5.2 cm. This is indeterminate and of unknown clinical significance but is similar in size to the prior pelvic ultrasound dated 10/28/2023. Laboratory Results WBC 12.30 10^3/uL (3.29-11.43) H 11/04/23 17:52 RBC 4.92 10^6/uL (3.85-5.65) 11/04/23 17:52 Hgb 14.30 g/dL (11.27-16.99) 11/04/23 17:52 Hct 42.9 % (36-47) 11/04/23 17:52 MCV 87.2 fl (85-98) 11/04/23 17:52 MCH 29.1 pg (27-33) 11/04/23 17:52 MCHC 33.3 g/dL (30-55) 11/04/23 17:52 RDW 13.4 % (12.1-15.1) 11/04/23 17:52 Plt Count 289 10^3/cmm (157-399) 11/04/23 17:52 MPV 11.0 fL (7.4-10.4) H 11/04/23 17:52 Neut % (Auto) 76.8 % 11/04/23 17:52 Lymph % (Auto) 16.5 % 11/04/23 17:52 Slope % (Auto) 5.6 % 11/04/23 17:52 Eos % (Auto) 0.5 % 11/04/23 17:52 Baso % (Auto) 0.3 % 11/04/23 17:52 Neut # (Auto) 9.44 10^3/uL (1.8-7.7) H 11/04/23 17:52 Lymph # (Auto) 2.0 10^3/uL (0.8-4.8) 11/04/23 17:52 Slope # (Auto) 0.7 10^3/uL (0.2-0.9) 11/04/23 17:52 Eos # (Auto) 0.1 10^3/uL (0.0-0.8) 11/04/23 17:52 Baso # (Auto) 0.0 10^3/uL (0.0-0.1) 11/04/23 17:52 Nucleated RBC % (auto) 0 % 11/04/23 17:52 Nucleated RBCs # 0.0 /100WBC 11/04/23 17:52 Sodium 134 mmol/L (136-145) L 11/04/23 17:52 Potassium 3.8 mmol/L (3.5-5.1) 11/04/23 17:52 Chloride 98 mmol/L (98-107) 11/04/23 17:52 Carbon Dioxide 22 mmol/L (22-29) 11/04/23 17:52 Anion Gap 17.8 (5-19) 11/04/23 17:52 BUN 10 mg/dL (6-20) 11/04/23 17:52 Creatinine 0.7 mg/dL (0.5-0.9) 11/04/23 17:52 GFR Calculation 95.8 mL/min (90-130) 11/04/23 17:52 Glucose 90 mg/dL (65-115) 11/04/23 17:52 Calculated Osmolality 277 mOsm/kg (285-295) L 11/04/23 17:52 Calcium 9.3 mg/dL (8.5-10.5) 11/04/23 17:52 Total Bilirubin 1.0 mg/dL (0.15-1.2) 11/04/23 17:52 AST 36 U/L (0-32) H 11/04/23 17:52 ALT 62 U/L (0-33) H 11/04/23 17:52 Alkaline Phosphatase 88 U/L (35-105) 11/04/23 17:52 Total Protein 7.8 g/dL (6.6-8.7) 11/04/23 17:52 Albumin 4.3 g/dL (3.5-5.2) 11/04/23 17:52 Globulin 3.5 g/dL (1.3-4.6) 11/04/23 17:52 Lipase 18 U/L (13-60) 11/04/23 17:52 Ser , Semi-Qnt 18792.00 mIU/mL 11/04/23 17:52 All radiology interpretation(s) finalized by discharge Discharge Plan Discharge Patient Disposition: Home Clinical Impression: Vaginal bleeding during , 6 weeks gestation of Condition: Stable Prescriptions: New ondansetron 4 mg tablet,disintegrating 4 mg PO TID PRN (Reason: nausea and vomiting) Qty: 60 0RF No Action amoxicillin-pot clavulanate 875-125 mg tablet 1 tab PO BID 7 Days Qty: 14 0RF duloxetine 30 mg capsule,delayed release(DR/EC) 30 mg PO DAILY Qty: 30 0RF hydroxyzine HCl 10 mg tablet 10 mg PO TID PRN (Reason: anxiety/insomnia) Qty: 90 0RF cetirizine [Zyrtec] 10 mg Tablet 10 mg PO DAILY albuterol 90 mcg/actuation Aerosol 2 mcg INHALATION Q6H PRN (Reason: Shortness Of Breath Or Wheezing) Discharge Orders: Discharge ED (Routine); Ordered 11/04/23 Ordered By: Richy Alvarez Referrals: Brianna Lopez FNP [Primary Care Provider] - Discharge Diet: As Directed Discharge Activity: Increase activity as tolerated Patient Instructions: Threatened Miscarriage (ED) Activity Restrictions/Additional Instructions: Continue taking her antibiotics for urinary tract infection, and take nausea medications as prescribed. Please follow-up with OB early next week as discussed. If you develop any new or concerning symptoms, please return to the emergency department. Coding Level of Care Code ED Scaler for Alyssa Stearns
[2023-11-04] MEDS: ondansetron 2 mg/ML SDV 2 mL 4 MG IVP ×2 (17:57→22:11)
[2023-11-04 17:59] LABS: Basophils % 0.3 %; Eosinophils # 0.1 10^3/uL (0.0-0.8); Eosinophils % 0.5 %; Hematocrit 42.9 % (36-47); Lymphocytes % 16.5 %; Mean Corpuscular HGB Conc 33.3 g/dL (30-55); Mean Corpuscular Hemoglobin 29.1 pg (27-33); Mean Corpuscular Volume 87.2 fl (85-98); Monocytes # 0.7 10^3/uL (0.2-0.9); Monocytes % 5.6 %; Neutrophils # 9.44 10^3/uL (1.8-7.7); Neutrophils % 76.8 %; Nucleated Red Blood Cells % 0 %; Platelet Count 289 10^3/cmm (157-399); Red Blood Count 4.92 10^6/uL (3.85-5.65); Red Cell Distribution Width 13.4 % (12.1-15.1)
[2023-11-04 18:00] VITALS: BP 152/98; PULSE 82; O2SAT 100
[2023-11-04 18:31] LABS: Alanine Aminotransferase 62 U/L (0-33); Albumin Level 4.3 g/dL (3.5-5.2); Alkaline Phosphatase 88 U/L (35-105); Anion Gap 17.8 (5-19); Aspartate Amino Transferase 36 U/L (0-32); Blood Urea Nitrogen 10 mg/dL (6-20); Calcium 9.3 mg/dL (8.5-10.5); Carbon Dioxide 22 mmol/L (22-29); Chloride 98 mmol/L (98-107); Creatinine Clr Calc Pharmacy 160.2643; Globulin 3.5 g/dL (1.3-4.6); Glomerular Filtration Rate 95.8 mL/min (90-130); Glucose 90 mg/dL (65-115); Lipase 18 U/L (13-60); Osmolality Calculated 277 mOsm/kg (285-295); Potassium 3.8 mmol/L (3.5-5.1); Sodium 134 mmol/L (136-145); Total Protein 7.8 g/dL (6.6-8.7)
[2023-11-04 20:46] VITALS: BP 162/94; PULSE 87; RESP 17; O2SAT 100
[2023-11-04 22:13] VITALS: BP 160/73; PULSE 87; RESP 16; O2SAT 98
== END 2023-11-04 22:15 | disposition home or self-care (01) ==
PROVIDERS: Emergency Medicine; Emergency Provider Physician Assistant; PCP Registered Nurse
DX: O20.9 Hemorrhage in early pregnancy, unspecified (principal); Z3A.01 Less than 8 weeks gestation of pregnancy; Z87.891 Personal history of nicotine dependence
CPT/HCPCS: 76801; 76817; 80053; 83690; 84702; 85025; 96361; 96374; 96376; 99285; J2405; J7030

== ENCOUNTER 2024-04-23 07:56 | Emergency (ER) | payer OTHER, BC, MEDICAID, SELFPAY ==
--- NOTE | 2024-04-23 08:00 | XR_ITS ---
WS: [id number] Exam: XR elbow LT min 3V* [id number] Date/Time of Exam: 04/23/2024 8:15 AM Reason For Exam: pain No fracture noted. The joints are preserved. There is bone spurring at the proximal ulna. No joint ef fusion. Normal soft tissues. XR/XR elbow LT min 3V* [id number] IMPRESSION: 1. Mild bone spurring of the proximal ulna otherwise negative study.
[2024-04-23 08:09] VITALS: BP 171/121; PULSE 86; RESP 18; TEMP 36.7; O2SAT 97
--- NOTE | 2024-04-23 08:20 | ED_ITS ---
HPI - Extremity Problem General: Chief complaint: Extremity Injury, Upper Stated complaint: lt elbow inj (surg 30xdays) Time Seen by Provider: 04/23/24 08:00 History of Present Illness: 33-year-old female presents emergency ro om with left elbow pain after tripping and falling on a gas hose. Related Data Home Medications Medication Instructions Recorded Confirmed albuterol 90 mcg/actuation aerosol 2 mcg inhalation Q6H PRN Shortness 02/01/23 03/06/24 inhaler Of Breath Or Wheezing cetirizine 10 mg tablet (Zyrtec) 10 mg PO DAILY 02/01/23 03/06/24 Previous Rx's Medication Instructions Recorded duloxetine 30 mg capsule,delayed 30 mg PO DAILY #30 caps 07/18/23 release hydroxyzine HCl 10 mg tablet 10 mg PO TID PRN anxiety/insomnia 07/18/23 #90 tabs ondansetron 4 mg disintegrating 4 mg PO TID PRN nausea and 11/04/23 tablet vomiting #60 tabs fluticasone propionate 50 1 spray intranasal BID 14 days #16 03/06/24 mcg/actuation nasal grams spray,suspension (Flonase Allergy Relief) promethazine-DM 6.25 mg-15 mg/5 mL 5 ml PO Q6H 7 days #140 mL 03/06/24 oral syrup Allergies Allergy/AdvReac Type Severity Reaction Status Date / Time amoxicillin [From Augmentin] Allergy ALGY-Swell Verified 03/06/24 10:20 Lip/Tongue/Throat cephalexin [From Keflex] Allergy ALGY-Hives Verified 03/06/24 10:20 clavulanic acid Allergy ALGY-Swell Verified 03/06/24 10:20 [From Augmentin] Lip/Tongue/Throat erythromycin base Allergy ALGY-Hives Verified 03/06/24 10:20 Sulfa (Sulfonamide Allergy ALGY-Hives Verified 03/06/24 10:20 Antibiotics) PFSH ED PFSH: Medical History Psychiatric care Surgical History History of laparoscopic appendectomy 02/02/23 Dr. Montes Social History Smoking and tobacco/nicotine status: unknown if used tobacco/nicotine Physical Exam Extremity: OTHER: Abrasion over the olecranon process no deformity no full-thickness lacerations neurovascularly intact flexion extension pronation and supination without significant pain Course Vital Signs: Vital signs: Vital Signs Temperature 98.1 F 04/23/24 08:09 Pulse Rate 73 04/23/24 08:42 Respiratory Rate 18 04/23/24 08:09 Blood Pressure 135/98 04/23/24 08:42 Pulse Oximetry 98 04/23/24 08:42 Oxygen Delivery Me thod Room Air 04/23/24 08:34 MDM - Extremity (Nontraumatic) Medical Decision Making Minor abrasion apply topical antibiotic, and [id number]. No fracture on x-ray. Discharge home follow-up primary care as needed can use Tylenol ibuprofen for pain Lab Data Radiology Impressions Elbow X-Ray 04/23/24 08:00 IMPRESSION: 1. Mild bone spurring of the proximal ulna otherwise negative study. All radiology interpretation(s) finalized by discharge Discharge Plan Discharge Patient Disposition: Home Clinical Impression: Abrasion of elbow, right Condition: Stable Prescriptions: No Action fluticasone propionate [Flonase Allergy Relief] 50 mcg/actuation spray,suspension 1 spray intranasal BID 14 Days Qty: 16 0RF Rx Instructions: administer into each nostril promethazine-DM 6.25-15 mg/5 mL syrup 5 ml PO Q6H 7 Days Qty: 140 0RF duloxetine 30 mg capsule,delayed release(DR/EC) 30 mg PO DAILY Qty: 30 0RF hydroxyzine HCl 10 mg tablet 10 mg PO TID PRN (Reason: anxiety/insomnia) Qty: 90 0RF cetirizine [Zyrtec] 10 mg Tablet 10 mg PO DAILY albuterol 90 mcg/actuation Aerosol 2 mcg INHALATION Q6H PRN (Reason: Shortness Of Breath Or Wheezing) ondansetron 4 mg tablet,disintegrating 4 mg PO TID PRN (Reason: nausea and vomiting) Qty: 60 0RF Discharge Orders: Discharge ED (Routine); Ordered 04/23/24 Ordered By: Vaughn Grimaldo Referrals: Brianna Lopez FNP [Primary Care Provider] - Discharge Diet: Usual diet Discharge Activity: Increase activity as tolerated Patient Instructions: Opioid Safety, Pain Management Activity Restrictions/Additional Instructions: Thank you for choosing [facility] for your healthcare needs today. It is very important that you follow up as instructed or that you return to the Emergency Department should you have concerns or if your condition changes or worsens in any way. You were seen today after a fall. X-ray of your left elbow showed arthritic changes which are chronic but no acute fractures. Coding Level of Care Code ED Infection Prevention Coordinator for Alyssa Stearns
[2024-04-23 08:34] VITALS: O2SAT 98
[2024-04-23 08:42] VITALS: BP 135/98; PULSE 73; O2SAT 98
== END 2024-04-23 08:43 | disposition home or self-care (01) ==
PROVIDERS: Emergency Provider Family Medicine; PCP Registered Nurse
DX: S50.311A Abrasion of right elbow, initial encounter (principal); W01.0XXA Fall on same level from slipping, tripping and stumbling without subsequent striking against object, initial encounter
CPT/HCPCS: 73080; 99282

== ENCOUNTER → 2024-05-20 15:42 | Outpatient (BNVA) | payer OTHER, BC, MEDICAID, SELFPAY | PROVIDERS: PCP Registered Nurse | DX: J02.9 Acute pharyngitis, unspecified (principal); J06.9 Acute upper respiratory infection, unspecified | CPT/HCPCS: 87880 ==

== ENCOUNTER 2024-05-21 07:56 | Outpatient (RCR) | payer OTHER, BC, MEDICAID, SELFPAY | END 2024-06-14 23:59 | disposition home or self-care (01) | LOC: SOT 07:56 | PROVIDERS: PCP Registered Nurse; Visit Provider Orthopaedic Surgery | DX: G56.02 Carpal tunnel syndrome, left upper limb (principal) | CPT/HCPCS: 97110; 97166 ==